=== PATIENT | female | born 1955 | race Caucasian/White ===

== ENCOUNTER 2016-11-05 12:48 | Inpatient (IN) | payer MEDICAID ==
[~2016-11-05] VITALS: Ht 172.7 cm; Wt 86.2 kg
[~2016-11-05 12:48] MED LIST: ESTRACE1 MG PO; LORCET PLUS TAB1 TAB PO
[2016-11-05 13:36] LABS: BASOPHILS 0.2 % (0.0-2.0); EOSINOPHILS 0.7 % (0-7); HEMATOCRIT 44.5 % (36.0-48.0); HEMOGLOBIN 14.9 g/dL (12-16); IMMATURE GRANULOCYTES 0.5 % (0-5); LYMPHOCYTES 11.8 % (15-50); MCH 29.4 pg (26.0-34.0); MCHC 33.5 g/dL (31.0-37.0); MCV 87.8 fL (80.0-100.0); MEAN PLATELET VOLUME 10.7 fL (7.4-10.4); MONOCYTES 5.5 % (2-11); NEUTROPHILS 81.3 % (40-80); RBC 5.07 10x6/uL (4.00-5.40); RDW 13.2 % (11.5-14.5); WBC 17.7 10x3/uL (4.8-10.8)
[2016-11-05 13:37] LABS: PLATELET COUNT 309 10x3/uL (130-400)
[2016-11-05 13:39] LABS: APPEARANCE CLEAR (CLEAR); BILIRUBIN NEGATIVE (NEGATIVE); COLOR YELLOW (YELLOW); GLUCOSE NEGATIVE (NEGATIVE); KETONE NEGATIVE (NEGATIVE); LEUKOCYTE ESTERASE NEGATIVE (NEGATIVE); NITRITE NEGATIVE (NEGATIVE); PROTEIN NEGATIVE (NEGATIVE); SPECIFIC GRAVITY 1.015 (1.005-1.020); UROBILINOGEN NORMAL (NORMAL)
[2016-11-05 14:14] LABS: ALBUMIN 3.8 g/dL (3.4-5.0); ALKALINE PHOSPHATASE 94 U/L (46-116); ALT (SGPT) 53 U/L (10-68); AMYLASE - SERUM 37 U/L (25-115); CALC OSMOLALITY 275 mosm/kg (275-300); CALCIUM 9.3 mg/dL (8.5-10.1); CARBON DIOXIDE 27.4 mmol/L (21.0-32.0); CHLORIDE - SERUM 99 mmol/L (98-107); CREATININE - SERUM 0.8 mg/dL (0.6-1.3); GLUCOSE 130 mg/dL (74-106); LIPASE 86 U/L (73-393); PROTEIN - SERUM 8.4 g/dL (6.4-8.2); SODIUM 138 mmol/L (136-145); UREA NITROGEN 7 mg/dL (7-18); eGFR NON AFRICAN AMERICAN 77 mL/min (90-120)
--- NOTE | 2016-11-05 16:20 | NUR ---
TO ROOM 2224 FROM ER VIA STRETCHER.NGT LEFT NARE CLAMPED.PT WILL GO FOR CT ABDOMEN ORDERED.ORIENTATION TO ROOM.CALL LIGHT IN REACH
[2016-11-05 16:36] VITALS: BP 124/47; BMI 28.9
[2016-11-05] MEDS ORDERED: BIAXIN 500 MG500 MG PO (16:45)
[2016-11-05] MEDS ORDERED: AMOXICILLIN500 M1 PO (16:45)
[2016-11-05] MEDS ORDERED: NICODERM C1 PATCH .3 TRANSDERM (16:46)
[2016-11-05] MEDS ORDERED: LISINOPRIL10 MG PO (16:46)
[2016-11-05] MEDS ORDERED: PHENERGAN25 M1 PO (16:47)
[2016-11-05] MEDS ORDERED: HYDROCODONE-APA1 TAB PO (16:47)
[2016-11-05] MEDS ORDERED: ADVAIR 250/501 DISK INH (16:48)
[2016-11-05] MEDS ORDERED: PROTONIX40 MG PO (16:48)
[2016-11-05] MEDS ORDERED: OMEPRAZOLE20 M1 PO (16:49)
[2016-11-05 19:00] VITALS: BP 123/61
[2016-11-06 05:45] LABS: BASOPHILS 0.2 % (0.0-2.0); EOSINOPHILS 0.8 % (0-7); HEMATOCRIT 41.9 % (36.0-48.0); HEMOGLOBIN 13.6 g/dL (12-16); IMMATURE GRANULOCYTES 0.3 % (0-5); LYMPHOCYTES 18.7 % (15-50); MCH 28.6 pg (26.0-34.0); MCHC 32.5 g/dL (31.0-37.0); MCV 88.2 fL (80.0-100.0); MEAN PLATELET VOLUME 11.3 fL (7.4-10.4); MONOCYTES 6.5 % (2-11); NEUTROPHILS 73.5 % (40-80); PLATELET COUNT 295 10x3/uL (130-400); RBC 4.75 10x6/uL (4.00-5.40); RDW 13.4 % (11.5-14.5)
[2016-11-06 06:12] LABS: WBC 11.9 10x3/uL (4.8-10.8)
[2016-11-06 06:52] LABS: ALBUMIN 3.2 g/dL (3.4-5.0); ANION GAP 13.2 mmol/L (8-16); BILIRUBIN - TOTAL 0.5 mg/dL (0.2-1.3); C-REACTIVE PROTEIN 4.1 mg/dL (0.0-0.9); CALCIUM 8.7 mg/dL (8.5-10.1); CARBON DIOXIDE 30.4 mmol/L (21.0-32.0); POTASSIUM - SERUM 3.6 mmol/L (3.5-5.1); PROTEIN - SERUM 7.3 g/dL (6.4-8.2)
--- NOTE | 2016-11-06 07:15 | NUR ---
REPORT RECEIVED FROM SWAGE TOOLSETTER NURSE. CALL LIGHT IN REACH. VISITORS IN ROOM.
--- NOTE | 2016-11-06 07:45 | NUR ---
LYING IN BED,WITHOUT DISTRESS.STATES FELLING BETTER TODAY,BUT STILL HAS SOME PAIM.CALL LIGHT IN REACH
[2016-11-06 08:47] VITALS: BP 136/62
--- NOTE | 2016-11-06 09:23 | NUR ---
ASSESSMENT COMPLETED. NORCO PO WITH OTHER AM MEDS ADMINISTERED D/T SHANT OF 8. NGT OFF FOR NOW FOR AT LEAST 45 MINUTES. OFFERED SCDs BUT REFUSED. FAMILY IN ROOM. CALL LIGHT IN REACH. WILL CONTINUE WITH PLAN OF CARE.
--- NOTE | 2016-11-06 11:27 | NUR ---
MIGUEL AND MARSHALL IV. CALL LIGHT IN REACH.
[2016-11-06 12:38] VITALS: BP 124/61
--- NOTE | 2016-11-06 12:47 | NUR ---
ADVANCED NGT 6-7 CM PER MD ORDER.
--- NOTE | 2016-11-06 13:55 | NUR ---
PROTONIX IVP. NORCO AND PHENERGAN PER C/O PAIN AND VOMITING. NGT OFF.
--- NOTE | 2016-11-06 14:55 | NUR ---
NGT TO SUCTION.
[2016-11-06 15:16] VITALS: Ht 172.7 cm; Wt 86.2 kg
--- NOTE | 2016-11-06 15:47 | CN ---
PATIENT NAME:PRAFUL BOOTH MEDICAL RECORD: [id number] : 57 LOCATION:[facility] ADMIT DATE: 11/05/16 ACCOUNT: [id number] CONSULTING PHYSICIAN: GABY BROWN MD REFERRING PHYSICIAN: AJIT VINSON MD DATE OF CONSULTATION: 11/06/2016 Surgical Consultation SURGEON: Gaby Brown MD REASON FOR CONSULTATION: Abdominal pain, small-bowel obstruction. HISTORY OF PRESENT ILLNESS: Ms. Booth is a 61-year-old female who was admitted from the ER yesterday. She presented to the Emergency Room with acute onset of abdominal pain. The patient had had nausea and vomiting for 1-day prior. She complains of diffuse abdominal pain, it does not migrate, it has improved since her admission, she has been treated with pain medication and an NG tube. She had a CT scan on admission that showed proximal dilated loops of small bowel with a transition point in the mid jejunum. She has a history of a small bowel resection 10 years ago. Her pain currently is 4/10. It waxes and wanes in intensity. Her pain is constant. PAST MEDICAL HISTORY: Chronic back pain, heart murmur, COPD, bone cancer. PAST SURGICAL HISTORY: Hysterectomy, hernia repair with small bowel resection. ALLERGIES: NSAIDS, SULFA. HOME MEDICATIONS: Include Lorcet, estradiol, omeprazole, Advair, [place], Phenergan, lisinopril, nicotine, Biaxin and amoxicillin. SOCIAL HISTORY: She is a current every day smoker. She denies alcohol use. FAMILY HISTORY: No history of cancer. REVIEW OF SYSTEMS: A 12-point review of systems was obtained, pertinent positive and negative as per the HPI. PHYSICAL EXAMINATION: VITAL SIGNS: Temperature 98.8, heart rate 87, respiratory rate 16, blood pressure 136/62, satting 94% on room air. GENERAL: This is a well-developed obese female in mild distress. EYES: Extraocular muscles are intact. EAR, NOSE, AND THROAT: Normal dentition. Mucous membranes are dry. CARDIOVASCULAR: Normal sinus rhythm. PULMONARY: She is clear to auscultation bilaterally. ABDOMEN: Soft, mildly distended, tympanitic. She has some pain in the epigastric region. No guarding. No rebound. She does have normoactive bowel sounds. SKIN: Warm and dry with normal turgor. EXTREMITIES: She is neurovascularly intact. No peripheral edema. NEUROLOGIC: She has a GCS of 15 with no focal deficits. LABORATORY DATA: Please import labs from the electronic medical record for full CONSULT REPORT [id number] PRAFUL BOOTH list of labs, laboratory values were reviewed. IMAGING: CT of the abdomen and pelvis images were personally reviewed. I agree with the findings of partial small-bowel obstruction with a transition point in the mid jejunum. IMPRESSION: A 61-year-old female with small-bowel obstruction and abdominal pain. History of hernia repair with small bowel resection. PLAN: 1. Continue NG tube to low intermittent wall suction, we will advance NG tube 8-10 cm. Continue IV fluids and bowel rest. 2. Serial abdominal exams, repeat labs in a.m., repeat abdominal x-ray in a.m. TRANSINT:[id number] Voice Confirmation ID: [id number] DOCUMENT ID: [id number] GABY BROWN MD at 1547 CC: [id number] DICTATION DATE: 11/06/16 1322 DOCUMENTATION NURSE: 11/06/[address] [facility] [address] [place] [address]
--- NOTE | 2016-11-06 16:46 | NUR ---
DEMEROL AND REGLAN IVP PER ORDER. CALL LIGHT IN REACH.
[2016-11-06 16:48] VITALS: BP 134/64
--- NOTE | 2016-11-06 18:11 | NUR ---
NO CHAGNES IN INITIAL ASSESSMENT. CALL LIGHT IN REACH. WILL CONTINUE WITH PLAN OF CARE. STILL REFUSES SCDs.
--- NOTE | 2016-11-06 20:57 | NUR ---
PATIENT RESTING IN BED. ALERT. NO SIGNS OF DISTRESS NOTED. RESPIRATIONS EVEN AND UNLABORED. NTG TO LEFT NARE TO LIS. PLACEMENT VERIFIED VIA AIR BOLUS AUSCULTATION. DENIES ANY NEEDS AT THIS TIME. SCD'S ON. BED LOW. CALL LIGHT IN REACH.
[2016-11-06 21:00] VITALS: BP 127/68
[2016-11-07 01:00] VITALS: BP 141/69
--- NOTE | 2016-11-07 04:07 | NUR ---
PT IN BED WITH NO DISTRESS AT THIS TIME. SIDE RAILS ARE UP X 2. BED IS LOW. CALL LIGHT IS IN REACH.
[2016-11-07 05:00] VITALS: BP 111/55
[2016-11-07 05:53] LABS: BASOPHILS 0.3 % (0.0-2.0); EOSINOPHILS 0.8 % (0-7); HEMATOCRIT 37.9 % (36.0-48.0); IMMATURE GRANULOCYTES 0.3 % (0-5); LYMPHOCYTES 14.5 % (15-50); MCH 28.2 pg (26.0-34.0); MCHC 31.7 g/dL (31.0-37.0); MEAN PLATELET VOLUME 11.3 fL (7.4-10.4); NEUTROPHILS 76.1 % (40-80); RBC 4.26 10x6/uL (4.00-5.40); RDW 13.5 % (11.5-14.5)
[2016-11-07 05:54] LABS: PLATELET COUNT 234 10x3/uL (130-400); WBC 8.7 10x3/uL (4.8-10.8)
[2016-11-07 06:06] LABS: ALBUMIN 2.9 g/dL (3.4-5.0); ALKALINE PHOSPHATASE 71 U/L (46-116); ALT (SGPT) 55 U/L (10-68); CALCIUM 8.4 mg/dL (8.5-10.1); CARBON DIOXIDE 30.8 mmol/L (21.0-32.0); CHLORIDE - SERUM 105 mmol/L (98-107); CREATININE - SERUM 0.8 mg/dL (0.6-1.3); GLUCOSE 143 mg/dL (74-106); POTASSIUM - SERUM 3.4 mmol/L (3.5-5.1); PROTEIN - SERUM 6.6 g/dL (6.4-8.2); SODIUM 142 mmol/L (136-145); eGFR NON AFRICAN AMERICAN 77 mL/min (90-120)
[2016-11-07 06:09] LABS: CALC OSMOLALITY 281 mosm/kg (275-300); UREA NITROGEN 5 mg/dL (7-18)
--- NOTE | 2016-11-07 07:15 | NUR ---
REPORT RECEIVED FROM CARPET WEAVER NURSE. CALL LIGHT IN REACH.
[2016-11-07 08:08] VITALS: BP 135/60
--- NOTE | 2016-11-07 09:07 | NUR ---
AWAKE ALERT N/G IN PLACE AT PRESENT DENIES ANY NEEDS AT THIS TIME.
--- NOTE | 2016-11-07 09:18 | NUR ---
AWAKE ALERT SITTING ON SIDE OF BED DENIES ANY NEEDS AT THIS TIME AT PRESENT.
--- NOTE | 2016-11-07 10:25 | NUR ---
ASSESSMENT COMPLETED. NORCO PO WITH AM MEDS ADMINISTERED. SCDs OFF. CALL LIGHT IN REACH. WILL CONTINUE WITH PLAN OF CARE.
[2016-11-07 11:52] VITALS: BP 156/79
--- NOTE | 2016-11-07 12:50 | NUR ---
TOLERATING CLEAR LIQUID DIET.
--- NOTE | 2016-11-07 13:29 | NUR ---
DEMEROL 50 MG SIVP PER C/O PAIN. 3RD BAG OF IV K+. CALL LIGHT IN REACH.
--- NOTE | 2016-11-07 14:33 | NUR ---
Patient Name: PRAFUL NIETO Admission Status: ER Accout number: [id number] Admission Date: 11-05-2016 : 1955 Admission Diagnosis:UNSPECIFIED INTESTINAL OBSTRUCTION Attending: ABIODUN Current LOS: 2 Anticipated DC Date: 11-09-2016 Planned Disposition: Home or Self Care Primary Insurance: [place] [employer] [place] Discharge Planning Comments: CM MET WITH PATIENT REGARDING D/C NEEDS AND PLANS. PATIENT STATED SHE LIVES WITH HER NEPHEW AND HE WILL PICK HER UP AT DISCHARGE. PATIENT HAS 6 STEPS W/RAILS TO ENTER HOME AND NO STAIRS INSIDE. PATIENT STATED SHE IS INDEPENDENT WITH HER CARE AND HAS NO DME AT HOME. PATIENTS PCP IS DR. ALEXANDER AND PHARMACY IS [facility]. PATIENT HAS NEVER HAD HOME HEALTH AND HAS REFUSED IT AT THIS TIME. CM WILL CONTINUE TO FOLLOW PATIENT WITH D/C NEEDS AND PLANS. PCP DR. BENJAMIN RIVAS [facility] ALFREDO NIETO (NEPHEW) [phone] Special Education Kindergarten Teacher: Peyton Leahy Is the patient Alert and Oriented? Yes 0 * How many steps to enter\exit or inside your home? 6 W/RAILS 0 * PCP DR. ALEXANDER 0 * [facility] * Preadmission Environment Home with Family 0 * ADLs Independent 0 * Equipment None 0 * List name and contact numbers for known caregivers / representatives who currently or will assist patient after discharge: ALFREDO NIETO (NEPHEW) [phone] * Community resources currently utilized None 0 * Additional services required to return to the preadmission environment? Yes 0 * Can the patient safely return to the preadmission environment? Yes 0 * Has this patient been hospitalized within the prior 30 days at any hospital? No 0 Grand Total: 0
--- NOTE | 2016-11-07 15:35 | NUR ---
AMBULATED IN HALLWAY. TOLERATED WELL.
[2016-11-07 15:40] VITALS: BP 127/73
--- NOTE | 2016-11-07 16:19 | NUR ---
AFTERNOON MEDS ADMINISTERED. NORCO PO. CALL LIGHT IN REACH.
--- NOTE | 2016-11-07 18:18 | NUR ---
NO CHANGES IN INITIAL ASSESSMENT. CALL LIGHT IN REACH. WILL CONTINUE WITH PLAN OF CARE.
[2016-11-07 20:00] VITALS: BP 120/48
--- NOTE | 2016-11-07 21:19 | NUR ---
PATIENT SITTING UP IN BED WATCHING TV. NO SIGNS OF DISTRESS NOTED. COMPLAINTS OF PAIN 5/10 TO ABD. PRN NORCO GIVEN ORDERED. VISITOR PRESENT. DENIES ANY OTHER NEEDS AT THIS TIME. BED LOW. CALL LIGHT IN REACH.
[2016-11-08] VITALS: BP 110/53
[2016-11-08 04:00] VITALS: BP 121/62
[2016-11-08 07:05] LABS: BASOPHILS 0.4 % (0.0-2.0); EOSINOPHILS 3.9 % (0-7); HEMATOCRIT 34.6 % (36.0-48.0); IMMATURE GRANULOCYTES 0.8 % (0-5); LYMPHOCYTES 23.6 % (15-50); MCH 28.3 pg (26.0-34.0); MCHC 31.8 g/dL (31.0-37.0); MCV 88.9 fL (80.0-100.0); MEAN PLATELET VOLUME 10.3 fL (7.4-10.4); MONOCYTES 7.7 % (2-11); NEUTROPHILS 63.6 % (40-80); PLATELET COUNT 200 10x3/uL (130-400); RBC 3.89 10x6/uL (4.00-5.40); RDW 13.5 % (11.5-14.5); WBC 7.9 10x3/uL (4.8-10.8)
[2016-11-08 07:19] LABS: ALBUMIN 2.7 g/dL (3.4-5.0); ANION GAP 10.2 mmol/L (8-16); BILIRUBIN - TOTAL 0.27 mg/dL (0.2-1.3); CALCIUM 8.6 mg/dL (8.5-10.1); CARBON DIOXIDE 29.2 mmol/L (21.0-32.0); CREATININE - SERUM 0.9 mg/dL (0.6-1.3); POTASSIUM - SERUM 3.4 mmol/L (3.5-5.1); PROTEIN - SERUM 6.1 g/dL (6.4-8.2)
--- NOTE | 2016-11-08 07:58 | NUR ---
AWAKE ALRIGHT COLOR ADQ SKIN WARM AND DRY AT PRESENT DENIES ANY NEEDS AT THIS TIME.
[2016-11-08 08:14] VITALS: BP 136/52
--- NOTE | 2016-11-08 09:00 | NUR ---
MEDS GIVEN CLEO WELL AT PRESENT CLEO WELL AT PRESENT.
--- NOTE | 2016-11-08 11:00 | NUR ---
AMB IN [facility] AT PRESENT N/C AT PRESENT.
[2016-11-08 11:45] VITALS: BP 146/74
--- NOTE | 2016-11-08 14:57 | NUR ---
NUTRITION MONITORING & EVAL DIET ADVANCED TO REG. 25% INTAKE LUNCH. WILL MONITOR PO INTAKE, HONOR FOOD PREFERENCES. RD FOLLOWING
--- NOTE | 2016-11-08 15:04 | NUR ---
CM REASSESSMENT NOTE: PATIENT IS DISCHARGING HOME - SPOUSE IS DRIVING HER. PATIENT DENIES HOME HEALTH OR OTHER NEEDS FOR DISCHARGE.
--- NOTE | 2016-11-08 15:28 | NUR ---
IV DCD CATH IN TACT SITE CLEAN AND DRY WITHOUT REDDNESS OR EDEMA NOTED DISCHARGE INSTRUCTIONS GONE OVER WITH PT DEMONSTRATES UNDERSTANDING.
--- NOTE | 2016-12-21 15:43 | DS ---
PATIENT:PRAFUL NIETO :57 MEDICAL RECORD: [id number] DISCHARGE SUMMARY ADMISSION DATE: 11/05/16 DISCHARGE DATE: 11/08/16 DATE OF ADMISSION: 11/05/2016 DATE OF DISCHARGE: 11/08/2016 DISCHARGE DIAGNOSES: 1. Abdominal pain. 2. Small-bowel obstruction. 3. Leukocytosis. 4. Chronic obstructive pulmonary disease. 5. Helicobacter pylori. 6. Hypertension. 7. Chronic back pain. 8. Nausea. CONSULTS: Trey Guido MD. IMAGES: 1. CT of the abdomen and pelvis, which showed mild dilated proximal small bowel loops, ____. 2. Acute abdominal series shows some mild dilated small bowel with gas seen in the colon, findings consistent with a partial bowel obstruction. HOSPITAL COURSE: This is a 61-year-old female who was admitted through the Emergency Department with abdominal pain and some nausea. The patient was currently being treated with a Prevpac for H. pylori and her symptoms began to get worse. Plain film showed a partial bowel obstruction with leukocytosis with white count of 17,000. The patient was admitted for further medical management. A surgical consult was obtained with Dr. Guido. An NG tube to low intermittent suction was instituted for bowel rest. Antiemetics were given for nausea and pain medication to control her discomfort. The patient had a urine culture with Gram-negative rods, which was a preliminary. This patient's condition improved. Her diet was advanced for which she tolerated. NG tube was removed. She was thought to be stable for discharge to home to follow up in the outpatient setting. See med rec. TRANSINT:[id number] Voice Confirmation ID: [id number] DOCUMENT ID: [id number] Dictated By: SHIRLEY JEROME I have interviewed/examined the above patient and agree with these documented findings. AJIT VINSON MD at 1515 at 1543 CC: [id number] DICTATION DATE: 12/20/16 0858 MAIL CENSOR: 12/21/16 0242 DIS IN 11/08/16 [facility] [address] [place] [address]
== END 2016-11-08 15:36 | disposition home or self-care (01) | DRG 389 ==
LOC: D.ER 12:48 → D.MS 15:38
PROVIDERS: Emergency Medicine; Family Medicine; ADMIT Family Medicine
PROC: 0D9670Z Drainage of Stomach with Drainage Device, Via Natural or Artificial Opening (ICD-10-PCS; principal; 2016-11-05)
DX: K56.60 Unspecified intestinal obstruction (principal); A04.8 Other specified bacterial intestinal infections; J44.9 Chronic obstructive pulmonary disease, unspecified; K76.0 Fatty (change of) liver, not elsewhere classified; I10 Essential (primary) hypertension; G89.29 Other chronic pain; M54.9 Dorsalgia, unspecified; E87.6 Hypokalemia; F17.200 Nicotine dependence, unspecified, uncomplicated

== ENCOUNTER → 2017-05-07 16:44 | Outpatient (CLI) | payer MEDICAID ==
[2016-11-06 15:16] VITALS: BMI 28.8
[~2017-05-07 16:44] MED LIST changes: +ADVAIR 250/501 DISK INH; +AMOXICILLIN500 M1 PO; +BIAXIN 500 MG500 MG PO; +HYDROCODONE-APA1 TAB PO; +LISINOPRIL10 MG PO; +NICODERM C1 PATCH .3 TRANSDERM; +OMEPRAZOLE20 M1 PO; +PHENERGAN25 M1 PO; +PROTONIX40 MG PO
== END | disposition home or self-care (01) ==
LOC: D.MAMMO 11:15
DX: Z12.31 Encounter for screening mammogram for malignant neoplasm of breast (principal)

== ENCOUNTER → 2018-05-08 18:15 | Outpatient (CLI) | payer MEDICAID ==
[2016-11-06 15:16] VITALS: BMI 28.8
[~2018-05-08 18:15] MED LIST changes: +FLAGYL500 MG PO; +LEVAQUIN750 MG PO; +PROZAC20 MG PO
== END | disposition home or self-care (01) ==
LOC: D.MAMMO 10:00
DX: Z12.31 Encounter for screening mammogram for malignant neoplasm of breast (principal)

== ENCOUNTER 2018-06-28 11:49 | Inpatient (IN) | payer MEDICAID ==
[~2018-06-28] VITALS: Ht 172.7 cm; Wt 77.6 kg
[~2018-06-28 11:49] MED LIST changes: -FLAGYL500 MG PO; -LEVAQUIN750 MG PO; -PROZAC20 MG PO
[2018-06-28 12:39] LABS: BASOPHILS 0.1 % (0-2); EOSINOPHILS 1.4 % (0-7); HEMATOCRIT 39.4 % (36.0-48.0); HEMOGLOBIN 13.2 g/dL (12-16); IMMATURE GRANULOCYTES 0.2 % (0-5); LYMPHOCYTES 25.6 % (15-50); MCH 28.2 pg (26.0-34.0); MCHC 33.5 g/dL (31.0-37.0); MCV 84.2 fL (80.0-100.0); MEAN PLATELET VOLUME 10.5 fL (7.4-10.4); MONOCYTES 7.4 % (2-11); NEUTROPHILS 65.3 % (40-80); PLATELET COUNT 265 10x3/uL (130-400); RBC 4.68 10x6/uL (4.00-5.40); RDW 13.7 % (11.5-14.5); WBC 9.3 10x3/uL (4.8-10.8)
[2018-06-28 12:53] LABS: ALBUMIN 3.5 g/dL (3.4-5.0); ALKALINE PHOSPHATASE 83 U/L (46-116); ALT (SGPT) 27 U/L (10-68); BILIRUBIN - TOTAL 0.32 mg/dL (0.2-1.3); CALC OSMOLALITY 272 mosm/kg (275-300); CALCIUM 8.4 mg/dL (8.5-10.1); CARBON DIOXIDE 28.5 mmol/L (21.0-32.0); CHLORIDE - SERUM 102 mmol/L (98-107); CREATININE - SERUM 0.7 mg/dL (0.6-1.3); GLUCOSE 101 mg/dL (74-106); LIPASE 89 U/L (73-393); PROTEIN - SERUM 7.4 g/dL (6.4-8.2); SODIUM 137 mmol/L (136-145); UREA NITROGEN 11 mg/dL (7-18); eGFR NON AFRICAN AMERICAN 90 mL/min (90-120)
[2018-06-28 16:38] VITALS: BP 130/52; BMI 26.0
[2018-06-28] MEDS ORDERED: PROZAC20 MG PO (16:50)
[2018-06-28 20:55] VITALS: BP 119/61
[2018-06-29 04:31] LABS: APPEARANCE CLEAR (CLEAR); BILIRUBIN NEGATIVE (NEGATIVE); COLOR YELLOW (YELLOW); GLUCOSE NEGATIVE (NEGATIVE); KETONE NEGATIVE (NEGATIVE); NITRITE NEGATIVE (NEGATIVE); PROTEIN NEGATIVE (NEGATIVE); UROBILINOGEN NORMAL (NORMAL)
[2018-06-29 04:40] VITALS: BP 116/42
[2018-06-29 05:59] LABS: BASOPHILS 0.2 % (0-2); EOSINOPHILS 4.1 % (0-7); HEMATOCRIT 34.1 % (36.0-48.0); HEMOGLOBIN 10.8 g/dL (12-16); IMMATURE GRANULOCYTES 0.2 % (0-5); LYMPHOCYTES 33.1 % (15-50); MCH 27.1 pg (26.0-34.0); MCHC 31.7 g/dL (31.0-37.0); MCV 85.5 fL (80.0-100.0); MEAN PLATELET VOLUME 10.7 fL (7.4-10.4); MONOCYTES 9.1 % (2-11); NEUTROPHILS 53.3 % (40-80); PLATELET COUNT 231 10x3/uL (130-400); RBC 3.99 10x6/uL (4.00-5.40); RDW 13.6 % (11.5-14.5)
[2018-06-29 06:01] LABS: ALBUMIN 2.8 g/dL (3.4-5.0); ALKALINE PHOSPHATASE 87 U/L (46-116); ALT (SGPT) 21 U/L (10-68); BILIRUBIN - TOTAL 0.23 mg/dL (0.2-1.3); CALC OSMOLALITY 278 mosm/kg (275-300); CARBON DIOXIDE 29.2 mmol/L (21.0-32.0); CHLORIDE - SERUM 105 mmol/L (98-107); CREATININE - SERUM 0.8 mg/dL (0.6-1.3); GLUCOSE 111 mg/dL (74-106); POTASSIUM - SERUM 3.7 mmol/L (3.5-5.1); PROTEIN - SERUM 6.1 g/dL (6.4-8.2); SODIUM 140 mmol/L (136-145); UREA NITROGEN 9 mg/dL (7-18); eGFR NON AFRICAN AMERICAN 77 mL/min (90-120)
[2018-06-29 06:05] LABS: WBC 6.3 10x3/uL (4.8-10.8)
[2018-06-29 11:01] VITALS: BP 117/54
[2018-06-29 15:11] VITALS: BP 110/54
[2018-06-29 15:18] VITALS: Ht 172.7 cm; Wt 77.6 kg
[2018-06-29 21:30] VITALS: BP 134/102
[2018-06-30 05:15] VITALS: BP 113/60
[2018-06-30 05:38] LABS: BASOPHILS 0.5 % (0-2); EOSINOPHILS 4.1 % (0-7); HEMOGLOBIN 10.8 g/dL (12-16); IMMATURE GRANULOCYTES 0.3 % (0-5); LYMPHOCYTES 28.2 % (15-50); MCH 27.1 pg (26.0-34.0); MCHC 31.8 g/dL (31.0-37.0); MCV 85.4 fL (80.0-100.0); MEAN PLATELET VOLUME 10.8 fL (7.4-10.4); MONOCYTES 8.5 % (2-11); NEUTROPHILS 58.4 % (40-80); PLATELET COUNT 203 10x3/uL (130-400); RBC 3.98 10x6/uL (4.00-5.40); RDW 13.2 % (11.5-14.5); WBC 6.1 10x3/uL (4.8-10.8)
[2018-06-30 05:52] LABS: CALC OSMOLALITY 287 mosm/kg (275-300); CALCIUM 8.3 mg/dL (8.5-10.1); CARBON DIOXIDE 29.5 mmol/L (21.0-32.0); CHLORIDE - SERUM 108 mmol/L (98-107); CREATININE - SERUM 0.7 mg/dL (0.6-1.3); GLUCOSE 106 mg/dL (74-106); POTASSIUM - SERUM 3.9 mmol/L (3.5-5.1); SODIUM 145 mmol/L (136-145); UREA NITROGEN 9 mg/dL (7-18); eGFR NON AFRICAN AMERICAN 90 mL/min (90-120)
[2018-06-30] MEDS ORDERED: LEVAQUIN750 MG PO (14:15)
[2018-06-30] MEDS ORDERED: FLAGYL500 MG PO (14:15)
== END 2018-06-30 16:30 | disposition home or self-care (01) | DRG 392 ==
LOC: D.ER 11:49 → D.MS 15:41
PROVIDERS: Family Medicine; Internal Medicine Nephrology
DX: K57.32 Diverticulitis of large intestine without perforation or abscess without bleeding (principal); J44.9 Chronic obstructive pulmonary disease, unspecified; I10 Essential (primary) hypertension; K59.09 Other constipation; F32.9 Major depressive disorder, single episode, unspecified; D50.9 Iron deficiency anemia, unspecified; G89.29 Other chronic pain; M54.9 Dorsalgia, unspecified

== ENCOUNTER → 2018-08-12 12:57 | Outpatient (CLI) | payer MEDICAID ==
[2018-06-29 15:18] VITALS: BMI 26.0
[~2018-08-12 12:57] MED LIST changes: +FLAGYL500 MG PO; +LEVAQUIN750 MG PO; +PROZAC20 MG PO
== END | disposition home or self-care (01) ==
LOC: D.CT 08-05 14:30
DX: Z12.2 Encounter for screening for malignant neoplasm of respiratory organs (principal)

== ENCOUNTER → 2019-05-05 07:09 | Outpatient (CLI) | payer MEDICAID ==
[2018-06-29 15:18] VITALS: BMI 26.0
== END | disposition home or self-care (01) ==
LOC: D.CT 07:09
DX: K21.9 Gastro-esophageal reflux disease without esophagitis (principal); K57.92 Diverticulitis of intestine, part unspecified, without perforation or abscess without bleeding

== ENCOUNTER 2020-01-07 20:20 | Emergency (ER) | payer MEDICAID ==
[~2020-01-07] VITALS: Ht 170.2 cm; Wt 81.6 kg
[2020-01-07 20:21] VITALS: Ht 170.2 cm; Wt 81.6 kg
[2020-01-07 20:55] LABS: BASOPHILS 0.5 % (0-2); HEMATOCRIT 40.7 % (36.0-48.0); HEMOGLOBIN 13.4 g/dL (12-16); IMMATURE GRANULOCYTES 0.5 % (0-5); LYMPHOCYTES 30.2 % (15-50); MCH 28.2 pg (26.0-34.0); MCHC 32.9 g/dL (31.0-37.0); MCV 85.5 fL (80.0-100.0); MEAN PLATELET VOLUME 9.6 fL (7.4-10.4); MONOCYTES 6.1 % (2-11); NEUTROPHILS 61.7 % (40-80); RBC 4.76 10x6/uL (4.00-5.40); RDW 13.9 % (11.5-14.5); WBC 9.2 10x3/uL (4.8-10.8)
[2020-01-07 20:56] LABS: PLATELET COUNT 298 10x3/uL (130-400)
[2020-01-07 21:03] LABS: APTT 27.3 SECONDS (22.8-39.4); INR 0.9 (0.85-1.17); PROTIME 12.1 SECONDS (11.6-15.0)
[2020-01-07 21:10] LABS: CALC OSMOLALITY 277 mosm/kg (275-300); CALCIUM 9.7 mg/dL (8.5-10.1); CARBON DIOXIDE 24.2 mmol/L (21.0-32.0); CHLORIDE - SERUM 102 mmol/L (98-107); GLUCOSE 112 mg/dL (74-106); POTASSIUM - SERUM 3.4 mmol/L (3.5-5.1); SODIUM 139 mmol/L (136-145); UREA NITROGEN 10 mg/dL (7-18); eGFR NON AFRICAN AMERICAN 59 mL/min (90-120)
[2020-01-07 21:14] LABS: BILIRUBIN NEGATIVE (NEGATIVE); GLUCOSE NEGATIVE (NEGATIVE); KETONE NEGATIVE (NEGATIVE); NITRITE NEGATIVE (NEGATIVE); UROBILINOGEN NORMAL (NORMAL)
[2020-01-07 21:24] LABS: ALBUMIN 4.4 g/dL (3.4-5.0); ALKALINE PHOSPHATASE 82 U/L (30-120); ALT (SGPT) 30 U/L (10-68); CREATINE KINASE 157 UL (21-215); MAGNESIUM - SERUM 1.8 mg/dL (1.8-2.4); PRO BNP 23 pg/mL (0-125); PROTEIN - SERUM 8.4 g/dL (6.4-8.2); THYROID STIMULATING HORMONE 4.84 uIU/mL (0.36-3.74); TROPONIN-I < 0.017 ng/mL (0.000-0.060)
[2020-01-07 21:30] LABS: UDS - AMPHET NEGATIVE QUAL (NEGATIVE); UDS - BARB NEGATIVE QUAL (NEGATIVE); UDS - BENZO NEGATIVE QUAL (NEGATIVE); UDS - COCAINE NEGATIVE QUAL (NEGATIVE); UDS - OPIATE POSITIVE QUAL (NEGATIVE); UDS - PCP NEGATIVE QUAL (NEGATIVE); UDS - THC NEGATIVE QUAL (NEGATIVE)
[2020-01-07] MEDS ORDERED: ATIVAN0.5 MG PO (22:07)
[2020-01-07 22:53] VITALS: BP 139/72
== END 2020-01-07 22:56 | disposition home or self-care (01) ==
LOC: D.ER 20:20
PROVIDERS: Family Medicine
DX: E87.3 Alkalosis (principal); R06.4 Hyperventilation; I10 Essential (primary) hypertension; J44.9 Chronic obstructive pulmonary disease, unspecified

== ENCOUNTER 2020-06-22 12:40 | Inpatient (IN) | payer MEDICAID ==
[~2020-06-22] VITALS: Ht 170.2 cm; Wt 81.2 kg
[~2020-06-22 12:40] MED LIST changes: +ATIVAN0.5 MG PO; -LISINOPRIL10 MG PO; +LISINOPRIL20 MG PO
[2020-06-22] MEDS ORDERED: ULTRAM50 MG PO (13:28)
[2020-06-22] MEDS ORDERED: TRAZODONE HCL150 MG PO (13:30)
[2020-06-22] MEDS ORDERED: ADVAIR 250-501 EAC1 INH (13:31)
[2020-06-22] MEDS ORDERED: PRAVACHOL40 MG PO (13:31)
[2020-06-22] MEDS ORDERED: SPIRIVA18 MCG INH (13:31)
[2020-06-22 13:36] VITALS: BMI 28.9
[2020-06-22 13:57] VITALS: BP 130/54
[2020-06-22 14:27] LABS: BASOPHILS 0.4 % (0-2); EOSINOPHILS 2.8 % (0-7); HEMATOCRIT 37.6 % (36.0-48.0); HEMOGLOBIN 12.1 g/dL (12-16); IMMATURE GRANULOCYTES 0.4 % (0-5); LYMPHOCYTES 34.1 % (15-50); MCH 28.7 pg (26.0-34.0); MCHC 32.2 g/dL (31.0-37.0); MCV 89.3 fL (80.0-100.0); MEAN PLATELET VOLUME 9.4 fL (7.4-10.4); MONOCYTES 8.1 % (2-11); NEUTROPHILS 54.2 % (40-80); RBC 4.21 10x6/uL (4.00-5.40); RDW 13.5 % (11.5-14.5); WBC 7.2 10x3/uL (4.8-10.8)
[2020-06-22 14:39] LABS: PLATELET COUNT 222 10x3/uL (130-400)
[2020-06-22 14:41] LABS: ALBUMIN 3.5 g/dL (3.4-5.0); ALKALINE PHOSPHATASE 73 U/L (30-120); ALT (SGPT) 26 U/L (10-68); AMYLASE - SERUM 40 U/L (25-115); BILIRUBIN - TOTAL 0.14 mg/dL (0.2-1.3); C-REACTIVE PROTEIN < 0.2 mg/dL (0.0-0.9); CALC OSMOLALITY 277 mosm/kg (275-300); CALCIUM 8.2 mg/dL (8.5-10.1); CARBON DIOXIDE 30.2 mmol/L (21.0-32.0); CHLORIDE - SERUM 104 mmol/L (98-107); CREATININE - SERUM 0.8 mg/dL (0.6-1.3); GLUCOSE 101 mg/dL (74-106); LIPASE 83 U/L (73-393); MAGNESIUM - SERUM 2.1 mg/dL (1.8-2.4); PROTEIN - SERUM 6.5 g/dL (6.4-8.2); SODIUM 140 mmol/L (136-145); UREA NITROGEN 11 mg/dL (7-18); eGFR NON AFRICAN AMERICAN 76 mL/min (90-120)
[2020-06-22 16:11] VITALS: BP 120/63
[2020-06-22 17:48] LABS: BILIRUBIN NEGATIVE (NEGATIVE); KETONE NEGATIVE (NEGATIVE); NITRITE NEGATIVE (NEGATIVE); UROBILINOGEN NORMAL (NORMAL)
--- NOTE | 2020-06-22 19:09 | NUR ---
REPORT RECEIVED AND ROUNDING COMPLETE. PATIENT LAYING IN BED IN LOW FOWLERS, JUST GOT BACK FROM CT AND ASKING FOR SOMETHING TO EAT. I EXPLAINED THAT SHE IS NPO AT THIS TIME. PATIENT THEN ASKED FOR PAIN MEDICATION, WILL TREAT PER MAR. PATIENT HAS A RIGHT FORARM PIV THAT IS RUNNING FLUIDS AT THIS TIME. NO DISTRESS NOTED AT THIS TIME. CALL LIGHT WIHTIN REACH AND BED IN LOWEST LOCKED POSITION. PATIENT IS ALERT AND ORIENTED X4.
[2020-06-22 20:43] VITALS: BP 124/49
[2020-06-23] VITALS: BP 137/68
[2020-06-23 04:00] VITALS: BP 159/69
--- NOTE | 2020-06-23 07:30 | NUR ---
REPORT RECIEVED. PT LYING IN BED ON RIGHT SIDE. COMPLAINS OF PAIN 8/. PAIN MEDS GIVEN. SHE HAS A R FA PIV INFUSING NS @ 100. BED LOCKED AND IN LOWEST POSITION, CALL LIGHT WITHIN REACH. WILL CTM
[2020-06-23 07:42] VITALS: BP 150/57
[2020-06-23 11:29] VITALS: BP 158/89
[2020-06-23 12:03] VITALS: Ht 170.2 cm; Wt 81.2 kg
[2020-06-23] MEDS ORDERED: PROTONIX40 MG PO (12:58)
[2020-06-23] MEDS ORDERED: CARAFATE1 G PO (12:59)
--- NOTE | 2020-06-23 14:13 | NUR ---
DC PAPERWORK GONE OVER AND SIGNED WITH PT. ALL QUESTIONS ANSWERED. PIV REMOVED, CATH TIP FULLY INTACT. ALL VALUBLES REMOVED FROM ROOM AT THIS TIME. PT WHEELED TO FRONT ENTRANCE TO MEET RIDE.
== END 2020-06-23 14:14 | disposition home or self-care (01) | DRG 392 ==
LOC: D.M2 12:40
PROVIDERS: ADMIT Family Medicine; ATTEND Family Medicine
DX: K57.92 Diverticulitis of intestine, part unspecified, without perforation or abscess without bleeding (principal); J43.9 Emphysema, unspecified; I11.0 Hypertensive heart disease with heart failure; I50.9 Heart failure, unspecified; Z72.0 Tobacco use